=== PATIENT | female | born 1980 | race Caucasian/White ===

== ENCOUNTER → 2020-07-12 | Outpatient (CLI) | payer OTHER ==
[~2020-07-12] MED LIST: AZITHROMYCIN 2250 MG PO; CEFTIN500 MG PO; COPAXONE40 MG/1 ML SUBQ; DERMOPLAST SPRA56 ML; IBUPROFEN 600600 M1 PO; LANOLIN56 GM; NORCO 5-325 TA1 EACH; SENNA PO; TUCKS MEDICATE1 EAC1; TYLENOL EX-STR500 M2 PO; TYLENOL EXTRA500 MG PO; VENTOLIN HFA 1818 GM INH; ZOLOFT100 MG PO; ZOLOFT50 MG PO; [UNRECOGNIZED DRUG - OTHER] PO
== END ==
LOC: LAB 08:01
PROVIDERS: ATTEND Neuromusculoskeletal Medicine & OMM
DX: U07.1 COVID-19 (principal)